=== PATIENT | male | born 1975 | race Caucasian/White ===

== ENCOUNTER 2016-07-23 09:52 | Inpatient (IN) | payer OTHER ==
[2016-07-23 10:23] VITALS: BMI 33.7
--- NOTE | 2016-07-23 15:46 | HP ---
Admission [facility] Chief Complaint: I am here because I need rehab and my police patrol officer has mandated me for rehab. Allergies/Adverse Reactions: Allergies Allergy/AdvReac Type Severity Reaction Status Date / Time penicillin G Allergy Severe Rash Verified 07/23/16 11:44 History of Present Illness: pt is a 41yr old male with a history of cocaine dependence seeking rehab for treatment. Exam Limitations: No Limitations - Ebola screening Have you traveled outside of the country in the last 21 days: No Have you had contact with anyone from an Ebola affected area: No Have you been sick,other than usual withdrawal symptoms: No Do you have a fever: No - Review of Systems Constitutional: Chills EENT: reports: No Symptoms Reported Respiratory: reports: Cough Cardiac: reports: Syncope GI: reports: Constipated : reports: No Symptoms Reported Musculoskeletal: reports: No Symptoms Reported Integumentary: reports: No Symptoms Reported Neuro: reports: No Symptoms reported Endocrine: reports: No Symptoms Reported Hematology: reports: No Symptoms Reported Psychiatric: reports: Judgement Intact, Mood/Affect Appropiate, Orientated x3, Agitated Other Systems: Reviewed and Negative Patient History - Patient Medical History Hx Anemia: No Hx Asthma: No Hx Chronic Obstructive Pulmonary Disease (COPD): No Hx Cancer: No Hx Cardiac Disorders: No Hx Hypertension: No Hx Hypercholesterolemia: No Hx Pacemaker: No HX Cerebrovascular Accident: No Hx Seizures: No Hx Dementia: No Hx Diabetes: No Hx Gastrointestinal Disorders: No Hx Liver Disease: No Hx Genitourinary Disorders: No Hx Sexually Transmitted Disorders: No Hx Renal Disease (ESRD): No Hx Thyroid Disease: No Hx Human Immunodeficiency Virus (HIV): No (negative) Hx Hepatitis C: No (negative) Hx Depression: Yes Hx Suicide Attempt: No (denies) Hx Bipolar Disorder: No Hx Schizophrenia: No - Patient Surgical History Past Surgical History: No - PPD History Previous Implant?: Yes Documented Results: Negative w/o proof PPD to be Administered?: Yes - Reproductive History Patient is a Female of Child Bearing Age (11 -55 yrs old): No - Smoking Cessation Smoking history: Current every day smoker Have you smoked in the past 12 months: Yes Aproximately how many cigarettes per day: 10 Hx Chewing Tobacco Use: No Initiated information on smoking cessation: Yes 'Breaking Loose' booklet given: 07/23/16 - Substance & Tx. History Hx Alcohol Use: No Hx Substance Use: No Substance Use Type: Cocaine Hx Substance Use Treatment: Yes - Substances Abused Crack Route: Smoking Frequency: No use in 30 days Amount used: 1x only Age of first use: 41 Date of Last Use: 07/17/16 Family Disease History - Family Disease History Family History: Denies Family Disease History: Heart Disease: Father, Mother Admission Physical Exam [facility] - Vital Signs Vital Signs: Vital Signs - 24 hr 07/23/16 10:22 Temperature 97.3 F L Pulse Rate 72 Respiratory 20 Rate Blood Pressure 128/73 - Physical General Appearance: Yes: Mild Distress, Anxious HEENTM: Yes: Normal Voice Respiratory: Yes: Lungs Clear, Normal Breath Sounds, No Respiratory Distress Neck: Yes: No masses,lesions,Nodules Breast: Yes: Within Normal Limits Cardiology: Yes: Regular Rhythm, Regular Rate, S1, S2 Abdominal: Yes: Normal Bowel Sounds, Non Tender, Soft Genitourinary: Yes: Within Normal Limits Back: Yes: Normal Inspection Musculoskeletal: Yes: full range of Motion Extremities: Yes: Normal Capillary Refill, Normal Inspection, Non-Tender, Tremors Neurological: Yes: Fully Oriented, Normal Response Integumentary: Yes: Normal Color, Diaphoresis Lymphatic: Yes: Within Normal Limits - Diagnostic (1) Cocaine abuse Current Visit: Yes Status: Chronic Cleared for Admission [facility] - Detox or Rehab [facility] Level of Care: Medically Managed Claeared for Rehab Admission: Yes [facility] Breath Alcohol Content Breath Alcohol Content: 0 Urine Drug Screen - Results Drug Screen Negative: Yes
[2016-07-23] MEDS ORDERED: LOPERAMIDE HCL 2 MG CAPSULE PO PRN (16:00)
[2016-07-23] MEDS ORDERED: NICOTINE POLACRILEX 4 MG GUM BUC PRN (16:00)
[2016-07-23] MEDS ORDERED: MAGNESIUM CITRATE 300 ML BOTTLE PO PRN (16:00)
[2016-07-23] MEDS ORDERED: P-EPHED 60MG/TRIPROLIDI 2.5MG TABLET PO PRN (16:00)
[2016-07-23] MEDS ORDERED: MAGNESIUM HYDROX 2400MG/30ML ORAL SUSPENSION 30 ML CUP PO PRN (16:00)
[2016-07-23] MEDS ORDERED: MAG HYDROX/AL HYDROX/SIMETH 30 ML UNIT-DOSE CUP PO PRN (16:00)
[2016-07-23] MEDS ORDERED: guaiFENesin/D-METHORPHAN HB 10 ML UNIT-DOSE CUPS PO PRN (16:00)
[2016-07-23] MEDS ORDERED: MENTHOL/PHENOL 1 EACH UD MM PRN (16:00)
[2016-07-23] MEDS ORDERED: TUBERCULIN PPD 5 TU/0.1ML VIAL ID ONE (19:35)
[2016-07-23] MEDS: THIAMINE HCL 100 MG TABLET (FP) PO SCH (22:41)
[2016-07-24] MEDS: busPIRone HCL 10 MG TABLET (FP) PO SCH ×3 (00:11→21:41)
[2016-07-24] MEDS: PRENATAL VITAMINS W/ FOLIC ACID TABLET (FP) PO SCH (10:31)
[2016-07-24] MEDS: BENZTROPINE MESYLATE 1 MG TABLET (FP) PO SCH (10:32)
[2016-07-24] MEDS: TOPIRAMATE 25 MG TABLET (FP) PO SCH (10:32)
[2016-07-24] MEDS: NICOTINE 21 MG/24 HOURS TOPICAL PATCH TD SCH (10:33)
[2016-07-24] MEDS: IBUPROFEN 400 MG TABLET (FP) PO PRN (10:35)
[2016-07-24 10:42] LABS: MCH 28.8 pg (25.7-33.7); MCHC 32.7 g/dl (32.0-35.9); MEAN CELL VOLUME 88.1 fl (80-96); MEAN PLT VOLUME 8.5 fl (7.5-11.1); PLATELET COUNT 262 K/MM3 (134-434); RDW 14.4 % (11.9-15.9)
[2016-07-24 11:28] LABS: ALBUMIN 3.5 g/dl (3.4-5.0); ALK PHOS 62 U/L (45-117); ANION GAP 9 (8-16); BILIRUBIN,TOTAL 0.3 mg/dL (0.2-1.0); CALCIUM 8.6 mg/dL (8.5-10.1); CO2 24 mmol/L (21-32); CREATININE 1.1 mg/dL (0.7-1.3); GLUCOSE,RANDOM 87 mg/dL (74-106); SGOT/AST 16 U/L (15-37); SGPT/ALT 24 U/L (12-78); TOT PROT 6.6 g/dl (6.4-8.2)
[2016-07-24 13:38] LABS: URINE APPEARANCE CLEAR; URINE BILIRUBIN NEGATIVE (NEGATIVE); URINE BLOOD NEGATIVE (NEGATIVE); URINE COLOR LT. YELLOW; URINE GLUCOSE (UA) NEGATIVE (NEGATIVE); URINE KETONE NEGATIVE (NEGATIVE); URINE LEUK ESTERASE NEGATIVE (NEGATIVE); URINE NITRITE NEGATIVE (NEGATIVE); URINE PROTEIN NEGATIVE (NEGATIVE); URINE UROBILINOGEN 0.2 E.U/dl E.U./dl (0.2-1.0)
[2016-07-24] MEDS: THIAMINE HCL 100 MG TABLET (FP) PO SCH (21:41)
[2016-07-25] MEDS: TOPIRAMATE 25 MG TABLET (FP) PO SCH (10:37)
[2016-07-25] MEDS: BENZTROPINE MESYLATE 1 MG TABLET (FP) PO SCH (10:37)
[2016-07-25] MEDS: PRENATAL VITAMINS W/ FOLIC ACID TABLET (FP) PO SCH (10:37)
[2016-07-25] MEDS: busPIRone HCL 10 MG TABLET (FP) PO SCH ×3 (10:37→21:42)
[2016-07-25] MEDS: NICOTINE 21 MG/24 HOURS TOPICAL PATCH TD SCH (10:37)
[2016-07-25] MEDS: THIAMINE HCL 100 MG TABLET (FP) PO SCH ×2 (21:39→21:42)
[2016-07-26] MEDS: BENZTROPINE MESYLATE 1 MG TABLET (FP) PO SCH (10:36)
[2016-07-26] MEDS: busPIRone HCL 10 MG TABLET (FP) PO SCH ×2 (10:36→21:28)
[2016-07-26] MEDS: TOPIRAMATE 25 MG TABLET (FP) PO SCH (10:36)
[2016-07-26] MEDS: NICOTINE 21 MG/24 HOURS TOPICAL PATCH TD SCH (10:36)
[2016-07-26] MEDS: PRENATAL VITAMINS W/ FOLIC ACID TABLET (FP) PO SCH (10:36)
--- NOTE | 2016-07-26 14:10 | HP ---
Psychiatrist Admission - Data Date of interview: 07/26/16 Admission source: [facility] Identifying data: THis is the first 5N inpatient rehabilitation admission for this 43 year old single male Medical History: hypertension, fracture Rt tibia and Fibula. Smokes cigarettes 6-7 -10 daily. Psychiatric History: Patient reports first psychiatric contact was in 1885, reports parents took him to see a psychiatrist at the clinic, he reports a few psychiatric hospitalizations, one time stayed in the hospital 2 months, most recent hospitalization was in 2010, he reports carries a diagnosis of Schizophrenia, under the care of the [facility] and on Haldol Decanoate injection 100 mg IM monthly, called placed to the clinic and spoke with patient's nurse Jermain Benavides [phone], who confirmed that patient had his injection on 07/22/16 and next is due on 08/19/16. PAtient currently on cogentin, buspar and topomax. Physical/Sexual Abuse/Trauma History: denies history of sexual, physical and verbal abuse. Vital Signs: Vital Signs - 24 hr 07/26/16 07/26/16 07/26/16 00:30 03:30 06:00 Temperature 97.6 F Pulse Rate 69 Respiratory 16 16 18 Rate Blood Pressure 123/82 Allergies/Adverse Reactions: Allergies Allergy/AdvReac Type Severity Reaction Status Date / Time penicillin G Allergy Severe Rash Verified 07/24/16 00:25 Date of last physical exam: 07/23/16 Concur with the findings of this exam: Yes - Substance Abuse/Tx History Hx Alcohol Use: No Hx Substance Use: Yes Substance Use Type: Cocaine ($60 reports used ot once) Hx Substance Use Treatment: Yes ([facility]) - Admission Criteria Previous failed treatment: Yes Poor recovery environment: Yes Comorbidities: Yes Lacks judgement: Yes Mental Status Exam - Mental Status Exam Alert and Oriented to: Time, Place, Person Cognitive Function: Grossly Intact Patient Appearance: Well Groomed Mood: Sad Affect: Mood Congruent, Flat, Constricted Patient Behavior: Cooperative Speech Pattern: Appropriate Voice Loudness: Normal Thought Process: Goal Oriented Thought Disorder: Not Present Hallucinations: Denies Suicidal Ideation: Denies Homicidal Ideation: Denies Insight/Judgement: Fair Sleep: Fair Appetite: Good Muscle strength/Tone: Normal Gait/Station: Normal Psychiatric Findings - Problem List ([place] 1, 2,3) (1) Cocaine abuse Current Visit: Yes Status: Chronic (2) Schizophrenia Current Visit: Yes Status: Acute - Initial Treatment Plan Initial Treatment Plan: Continue his medications,monitor progress as needed.
[2016-07-26] MEDS: THIAMINE HCL 100 MG TABLET (FP) PO SCH (21:28)
[2016-07-27] MEDS: BENZTROPINE MESYLATE 1 MG TABLET (FP) PO SCH (10:07)
[2016-07-27] MEDS: PRENATAL VITAMINS W/ FOLIC ACID TABLET (FP) PO SCH (10:07)
[2016-07-27] MEDS: busPIRone HCL 10 MG TABLET (FP) PO SCH ×2 (10:07→21:12)
[2016-07-27] MEDS: NICOTINE 21 MG/24 HOURS TOPICAL PATCH TD SCH (10:08)
[2016-07-27] MEDS: TOPIRAMATE 25 MG TABLET (FP) PO SCH (10:08)
[2016-07-27] MEDS: THIAMINE HCL 100 MG TABLET (FP) PO SCH (21:12)
[2016-07-28] MEDS: PRENATAL VITAMINS W/ FOLIC ACID TABLET (FP) PO SCH (10:28)
[2016-07-28] MEDS: busPIRone HCL 10 MG TABLET (FP) PO SCH ×2 (10:28→21:16)
[2016-07-28] MEDS: BENZTROPINE MESYLATE 1 MG TABLET (FP) PO SCH (10:28)
[2016-07-28] MEDS: TOPIRAMATE 25 MG TABLET (FP) PO SCH (10:28)
[2016-07-28] MEDS: NICOTINE 21 MG/24 HOURS TOPICAL PATCH TD SCH (10:29)
[2016-07-28] MEDS: THIAMINE HCL 100 MG TABLET (FP) PO SCH (21:16)
[2016-07-28] MEDS: SODIUM CHLORIDE NASAL SPRAY 44 ML BOTTLE NS PRN (21:30)
[2016-07-29] MEDS: busPIRone HCL 10 MG TABLET (FP) PO SCH ×2 (10:33→21:42)
[2016-07-29] MEDS: BENZTROPINE MESYLATE 1 MG TABLET (FP) PO SCH (10:33)
[2016-07-29] MEDS: PRENATAL VITAMINS W/ FOLIC ACID TABLET (FP) PO SCH (10:33)
[2016-07-29] MEDS: NICOTINE 21 MG/24 HOURS TOPICAL PATCH TD SCH (10:35)
[2016-07-29] MEDS: TOPIRAMATE 25 MG TABLET (FP) PO SCH (10:35)
--- NOTE | 2016-07-29 15:51 | PN ---
Psychiatric Progress Note Vital Signs: Vital Signs Period Temp Pulse Resp BP Sys/Calixto Pulse Ox Last 24 Hr 97.4 F 70 18-18 114/56 Date of Session: 07/29/16 Chief Complaint:: progress update HPI: Patient is addressing cocaine abuse comorbid Schizophrenia. ROS: WNL Current Medications: Active Medications Generic Name Dose Route Start Last Admin Trade Name Freq PRN Reason Stop Dose Admin Acetaminophen 650 mg 07/23/16 16:00 Tylenol - PO Q4H PRN PAIN Al Hydroxide/Mg Hydroxide 30 ml 07/23/16 16:00 Mylanta Oral Suspension - PO Q6H PRN DYSPEPSIA Benztropine Mesylate 1 mg 07/24/16 10:00 07/29/16 10:33 Cogentin - PO 1 mg DAILY HERI Administration Buspirone HCl 10 mg 07/23/16 23:45 07/29/16 10:33 Buspar - PO 10 mg BID HERI Administration Diphenhydramine HCl 50 mg 07/23/16 22:00 Benadryl - PO HSMR1 PRN INSOMNIA Eucalyptus/Menthol/Phenol/Sorbitol 1 each 07/23/16 16:00 Cepastat Lozenge - MM Q4H PRN SORE THROAT Guaifenesin 10 ml 07/23/16 16:00 Robitussin Dm - PO Q6H PRN COUGH Hydroxyzine Pamoate 50 mg 07/23/16 16:00 Vistaril - PO Q4H PRN AGITATION Ibuprofen 400 mg 07/23/16 16:00 07/24/16 10:35 Motrin - PO 400 mg Q6H PRN Administration SEVERE PAIN Loperamide HCl 4 mg 07/23/16 16:00 Imodium - PO Q6H PRN DIARRHEA Magnesium Citrate 300 ml 07/23/16 16:00 Citroma - PO Q48H PRN CONSTIPATION Magnesium Hydroxide 30 ml 07/23/16 16:00 Milk Of Magnesia - PO DAILY PRN CONSTIPATION Nicotine 21 mg 07/24/16 10:00 07/29/16 10:35 Nicoderm Patch - TD Not Given DAILY HERI Nicotine Polacrilex 4 mg 07/23/16 16:00 Nicorette Gum - BUC Q2H PRN NICOTINE REPLACEMENT RX Multivit/Folic Acid/Iron 1 tab 07/24/16 10:00 12/22/16 10:33 Vitamins (Sjr) - PO 1 tab DAILY HERI Administration Pseudoephedrine/Triprolidine 1 combo 07/23/16 16:00 Actifed - PO TID PRN NASAL CONGESTION Sodium Chloride 2 spray 07/28/16 12:43 07/28/16 21:30 [place] Nasal [place] - NS 2 spray TID PRN Administration NASAL CONGESTION Thiamine HCl 100 mg 07/23/16 22:00 07/28/16 21:16 Vitamin B1 - PO 100 mg HS HERI Administration Topiramate 50 mg 07/24/16 10:00 07/29/16 10:35 Topamax - PO Not Given DAILY HERI Current Side Effect: No Lab tests ordered: No Lab tests reviewed: Yes Provider note:: Patient reports that he is feeling fine, he reported that his parachute officer referred him for the treatent, states he used only once cocaine and spend $60. Reviewed all his current medications, patient reports he feels comfortable with all his current medications and does not want any changes.He reports no side-effects from his medications. MSE completed, continue to monitor porgress. His next Haldol Decanote injection on 08/19/16. Total face to face time:: 35 Mental Status Exam - Mental Status Exam Alert and Oriented to: Time, Place, Person Cognitive Function: Good Patient Appearance: Well Groomed Mood: Hopeful Affect: Mood Congruent Patient Behavior: Appropriate, Cooperative Speech Pattern: Appropriate Voice Loudness: Normal Thought Process: Intact, Goal Oriented Thought Disorder: Not Present Hallucinations: Denies Suicidal Ideation: Denies Homicidal Ideation: Denies Insight/Judgement: Fair Sleep: Fair Appetite: Good Muscle strength/Tone: Normal Gait/Station: Normal Psychiatric Treatment Plan - Problem List (1) Cocaine abuse Current Visit: Yes (2) Schizophrenia Current Visit: Yes
[2016-07-29] MEDS: THIAMINE HCL 100 MG TABLET (FP) PO SCH (21:42)
[2016-07-29] MEDS: diphenhydrAMINE HCL 50 MG CAPSULE PO PRN (21:43)
[2016-07-30] MEDS: busPIRone HCL 10 MG TABLET (FP) PO SCH ×2 (10:25→21:19)
[2016-07-30] MEDS: NICOTINE 21 MG/24 HOURS TOPICAL PATCH TD SCH (10:25)
[2016-07-30] MEDS: BENZTROPINE MESYLATE 1 MG TABLET (FP) PO SCH (10:25)
[2016-07-30] MEDS: PRENATAL VITAMINS W/ FOLIC ACID TABLET (FP) PO SCH (10:25)
[2016-07-30] MEDS: TOPIRAMATE 25 MG TABLET (FP) PO SCH (10:25)
[2016-07-30] MEDS: THIAMINE HCL 100 MG TABLET (FP) PO SCH (21:19)
[2016-07-31] MEDS: PRENATAL VITAMINS W/ FOLIC ACID TABLET (FP) PO SCH (10:24)
[2016-07-31] MEDS: BENZTROPINE MESYLATE 1 MG TABLET (FP) PO SCH (10:24)
[2016-07-31] MEDS: busPIRone HCL 10 MG TABLET (FP) PO SCH ×2 (10:25→21:24)
[2016-07-31] MEDS: TOPIRAMATE 25 MG TABLET (FP) PO SCH (10:26)
[2016-07-31] MEDS: NICOTINE 21 MG/24 HOURS TOPICAL PATCH TD SCH (10:26)
[2016-07-31] MEDS: THIAMINE HCL 100 MG TABLET (FP) PO SCH (21:24)
[2016-07-31] MEDS: diphenhydrAMINE HCL 50 MG CAPSULE PO PRN (21:24)
[2016-08-01] MEDS: NICOTINE 21 MG/24 HOURS TOPICAL PATCH TD SCH (10:24)
[2016-08-01] MEDS: busPIRone HCL 10 MG TABLET (FP) PO SCH ×2 (10:24→21:34)
[2016-08-01] MEDS: PRENATAL VITAMINS W/ FOLIC ACID TABLET (FP) PO SCH (10:24)
[2016-08-01] MEDS: BENZTROPINE MESYLATE 1 MG TABLET (FP) PO SCH (10:24)
[2016-08-01] MEDS: TOPIRAMATE 25 MG TABLET (FP) PO SCH (10:24)
[2016-08-01] MEDS: THIAMINE HCL 100 MG TABLET (FP) PO SCH (21:34)
[2016-08-01] MEDS: IBUPROFEN 400 MG TABLET (FP) PO PRN (21:35)
[2016-08-02] MEDS: busPIRone HCL 10 MG TABLET (FP) PO SCH ×2 (10:47→21:29)
[2016-08-02] MEDS: BENZTROPINE MESYLATE 1 MG TABLET (FP) PO SCH (10:47)
[2016-08-02] MEDS: PRENATAL VITAMINS W/ FOLIC ACID TABLET (FP) PO SCH (10:47)
[2016-08-02] MEDS: NICOTINE 21 MG/24 HOURS TOPICAL PATCH TD SCH (10:48)
[2016-08-02] MEDS: TOPIRAMATE 25 MG TABLET (FP) PO SCH (10:48)
[2016-08-02] MEDS: ACETAMINOPHEN 325 MG TABLET (FP) PO PRN ×2 (15:38→21:30)
[2016-08-02] MEDS: THIAMINE HCL 100 MG TABLET (FP) PO SCH (21:29)
[2016-08-03] MEDS: SODIUM CHLORIDE NASAL SPRAY 44 ML BOTTLE NS PRN (09:53)
[2016-08-03] MEDS: busPIRone HCL 10 MG TABLET (FP) PO SCH ×2 (09:53→21:39)
[2016-08-03] MEDS: PRENATAL VITAMINS W/ FOLIC ACID TABLET (FP) PO SCH (09:53)
[2016-08-03] MEDS: BENZTROPINE MESYLATE 1 MG TABLET (FP) PO SCH (09:53)
[2016-08-03] MEDS: NICOTINE 21 MG/24 HOURS TOPICAL PATCH TD SCH (09:54)
[2016-08-03] MEDS: TOPIRAMATE 25 MG TABLET (FP) PO SCH (09:55)
[2016-08-03] MEDS: THIAMINE HCL 100 MG TABLET (FP) PO SCH (21:39)
[2016-08-03] MEDS: diphenhydrAMINE HCL 50 MG CAPSULE PO PRN (21:41)
[2016-08-03] MEDS: ACETAMINOPHEN 325 MG TABLET (FP) PO PRN (21:41)
--- NOTE | 2016-08-03 22:00 | PN ---
S Progress Note Note: ASKED TO SEE PT HE PULLED OUT HIS TEETH. PT REPORTS TAKING OUT HIS 3 FRONTAL DENTAL IMPLANTS BECAUSE THEY BOTHERED HIM WHILE CHEWING. DENIES PAIN. 0- NO S/SX OF INFECTION OR BLEEDING OR TRAUMA OTHER THAN CAVITIES NOTED IN THE GUMS WITH SOME REDDNESS FROM WHERE THE IMPLANTS WHERE REMOVED IS NOTED A- REMOVAL OF DENTAL IMPLANT P-PT INSTRUCTED TO RINSE WITH WARM SALT WATER AFTER EACH MEAL AND BED TIME START DOXYCYCLINE 100 MG PO DAILY X 7 DAYS FOR PROPHYLACTIC TXMENT MONITOR FOR S/SX OF INFECTION OR BLEEDING.MOTRIN/TYLENOL ORDERED FOR PAIN
[2016-08-03] MEDS: DOXYCYCLINE HYCLATE 100 MG CAPSULE PO SCH (23:00)
--- NOTE | 2016-08-04 09:48 | PN ---
S Progress Note Note: patient reports he wants to stop topomax, patient reports he is losing weight, will d/c, continue to monitor.
[2016-08-04] MEDS: NICOTINE 21 MG/24 HOURS TOPICAL PATCH TD SCH (10:22)
[2016-08-04] MEDS: DOXYCYCLINE HYCLATE 100 MG CAPSULE PO SCH (10:22)
[2016-08-04] MEDS: BENZTROPINE MESYLATE 1 MG TABLET (FP) PO SCH (10:22)
[2016-08-04] MEDS: busPIRone HCL 10 MG TABLET (FP) PO SCH ×2 (10:22→21:27)
[2016-08-04] MEDS: PRENATAL VITAMINS W/ FOLIC ACID TABLET (FP) PO SCH (10:22)
[2016-08-04] MEDS: THIAMINE HCL 100 MG TABLET (FP) PO SCH (21:27)
[2016-08-05] MEDS: PRENATAL VITAMINS W/ FOLIC ACID TABLET (FP) PO SCH (10:01)
[2016-08-05] MEDS: NICOTINE 21 MG/24 HOURS TOPICAL PATCH TD SCH (10:01)
[2016-08-05] MEDS: busPIRone HCL 10 MG TABLET (FP) PO SCH ×2 (10:01→21:49)
[2016-08-05] MEDS: DOXYCYCLINE HYCLATE 100 MG CAPSULE PO SCH (10:01)
[2016-08-05] MEDS: BENZTROPINE MESYLATE 1 MG TABLET (FP) PO SCH (10:01)
[2016-08-05] MEDS: THIAMINE HCL 100 MG TABLET (FP) PO SCH (21:49)
[2016-08-06] MEDS: busPIRone HCL 10 MG TABLET (FP) PO SCH ×2 (10:16→21:28)
[2016-08-06] MEDS: PRENATAL VITAMINS W/ FOLIC ACID TABLET (FP) PO SCH (10:16)
[2016-08-06] MEDS: DOXYCYCLINE HYCLATE 100 MG TABLET PO SCH (10:16)
[2016-08-06] MEDS: NICOTINE 21 MG/24 HOURS TOPICAL PATCH TD SCH (10:16)
[2016-08-06] MEDS: BENZTROPINE MESYLATE 1 MG TABLET (FP) PO SCH (10:16)
[2016-08-06] MEDS: THIAMINE HCL 100 MG TABLET (FP) PO SCH (21:28)
[2016-08-07] MEDS: BENZTROPINE MESYLATE 1 MG TABLET (FP) PO SCH (10:20)
[2016-08-07] MEDS: DOXYCYCLINE HYCLATE 100 MG TABLET PO SCH (10:20)
[2016-08-07] MEDS: busPIRone HCL 10 MG TABLET (FP) PO SCH ×2 (10:20→21:09)
[2016-08-07] MEDS: NICOTINE 21 MG/24 HOURS TOPICAL PATCH TD SCH (10:20)
[2016-08-07] MEDS: PRENATAL VITAMINS W/ FOLIC ACID TABLET (FP) PO SCH (10:20)
[2016-08-07] MEDS: THIAMINE HCL 100 MG TABLET (FP) PO SCH (21:09)
[2016-08-08] MEDS: BENZTROPINE MESYLATE 1 MG TABLET (FP) PO SCH (09:56)
[2016-08-08] MEDS: DOXYCYCLINE HYCLATE 100 MG TABLET PO SCH (09:56)
[2016-08-08] MEDS: busPIRone HCL 10 MG TABLET (FP) PO SCH ×2 (09:56→21:25)
[2016-08-08] MEDS: PRENATAL VITAMINS W/ FOLIC ACID TABLET (FP) PO SCH (09:57)
[2016-08-08] MEDS: NICOTINE 21 MG/24 HOURS TOPICAL PATCH TD SCH (09:57)
[2016-08-08] MEDS: hydrOXYzine PAMOATE 50 MG CAPSULE (FP) PO PRN (11:31)
[2016-08-08] MEDS: THIAMINE HCL 100 MG TABLET (FP) PO SCH (21:25)
[2016-08-09] MEDS: busPIRone HCL 10 MG TABLET (FP) PO SCH ×2 (09:32→21:53)
[2016-08-09] MEDS: BENZTROPINE MESYLATE 1 MG TABLET (FP) PO SCH (09:32)
[2016-08-09] MEDS: PRENATAL VITAMINS W/ FOLIC ACID TABLET (FP) PO SCH (09:32)
[2016-08-09] MEDS: DOXYCYCLINE HYCLATE 100 MG TABLET PO SCH (09:32)
[2016-08-09] MEDS: NICOTINE 21 MG/24 HOURS TOPICAL PATCH TD SCH (09:33)
[2016-08-09] MEDS: THIAMINE HCL 100 MG TABLET (FP) PO SCH (21:53)
[2016-08-09] MEDS: hydrOXYzine PAMOATE 50 MG CAPSULE (FP) PO PRN (21:53)
[2016-08-10] MEDS: BENZTROPINE MESYLATE 1 MG TABLET (FP) PO SCH (09:31)
[2016-08-10] MEDS: DOXYCYCLINE HYCLATE 100 MG TABLET PO SCH (09:31)
[2016-08-10] MEDS: PRENATAL VITAMINS W/ FOLIC ACID TABLET (FP) PO SCH (09:31)
[2016-08-10] MEDS: busPIRone HCL 10 MG TABLET (FP) PO SCH ×2 (09:31→21:12)
[2016-08-10] MEDS: NICOTINE 21 MG/24 HOURS TOPICAL PATCH TD SCH (09:31)
--- NOTE | 2016-08-10 11:10 | PN ---
Psychiatric Progress Note Vital Signs: Vital Signs Period Temp Pulse Resp BP Sys/Calixto Pulse Ox Last 24 Hr 97.8 F 69 16-18 111/72 Date of Session: 08/10/16 Chief Complaint:: psychiatric evaluations HPI: Patient is addressing cocaine abuse comorbid Schizophrenia. ROS: WNL Current Medications: Active Medications Generic Name Dose Route Start Last Admin Trade Name Freq PRN Reason Stop Dose Admin Acetaminophen 650 mg 07/23/16 16:00 08/03/16 21:41 Tylenol - PO 650 mg Q4H PRN Administration PAIN Al Hydroxide/Mg Hydroxide 30 ml 07/23/16 16:00 08/01/16 13:06 Mylanta Oral Suspension - PO 30 ml Q6H PRN Administration DYSPEPSIA Benztropine Mesylate 1 mg 07/24/16 10:00 08/10/16 09:31 Cogentin - PO 1 mg DAILY HERI Administration Buspirone HCl 10 mg 07/23/16 23:45 08/10/16 09:31 Buspar - PO 10 mg BID HERI Administration Diphenhydramine HCl 50 mg 07/23/16 22:00 08/03/16 21:41 Benadryl - PO 50 mg HSMR1 PRN Administration INSOMNIA Doxycycline Hyclate 100 mg 08/06/16 10:00 08/10/16 09:31 Vibratab - PO 08/10/16 21:59 100 mg DAILY HERI Administration Eucalyptus/Menthol/Phenol/Sorbitol 1 each 07/23/16 16:00 Cepastat Lozenge - MM Q4H PRN SORE THROAT Guaifenesin 10 ml 07/23/16 16:00 08/08/16 10:19 Robitussin Dm - PO 10 ml Q6H PRN Administration COUGH Hydroxyzine Pamoate 50 mg 07/23/16 16:00 08/09/16 21:53 Vistaril - PO 50 mg Q4H PRN Administration AGITATION Ibuprofen 400 mg 07/23/16 16:00 08/01/16 21:35 Motrin - PO 400 mg Q6H PRN Administration SEVERE PAIN Loperamide HCl 4 mg 07/23/16 16:00 Imodium - PO Q6H PRN DIARRHEA Magnesium Citrate 300 ml 07/23/16 16:00 Citroma - PO Q48H PRN CONSTIPATION Magnesium Hydroxide 30 ml 07/23/16 16:00 Milk Of Magnesia - PO DAILY PRN CONSTIPATION Nicotine 21 mg 07/24/16 10:00 08/10/16 09:31 Nicoderm Patch - TD Not Given DAILY HERI Nicotine Polacrilex 4 mg 07/23/16 16:00 Nicorette Gum - BUC Q2H PRN NICOTINE REPLACEMENT RX Multivit/Folic Acid/Iron 1 tab 07/24/16 10:00 08/10/16 09:31 Vitamins (Sjr) - PO Not Given DAILY HERI Pseudoephedrine/Triprolidine 1 combo 07/23/16 16:00 Actifed - PO TID PRN NASAL CONGESTION Sodium Chloride 2 spray 07/28/16 12:43 08/03/16 09:53 [place] Nasal [place] - NS 2 spray TID PRN Administration NASAL CONGESTION Thiamine HCl 100 mg 07/23/16 22:00 08/09/16 21:53 Vitamin B1 - PO 100 mg HS HERI Administration Medication(s) Change(s): add Trazodone Current Side Effect: No Lab tests ordered: No Lab tests reviewed: Yes Provider note:: Was asked by the staff to re-evaluate the patient according to the staff patient looks sad. Patient was seen and evaluated, he reports he just can't sleep well at nights and next day fatiqued and wants to be alone, he denies feeling depressed and denies suicial and homicidal thoughts, reviewed medications with the patient , he reportes had a good response to Trazodone in the past, will start 50 mg po hs, continue to monitor progress. Total face to face time:: 25 Mental Status Exam - Mental Status Exam Alert and Oriented to: Time, Place, Person Cognitive Function: Grossly Intact Patient Appearance: Well Groomed Mood: Depressed, Sad Affect: Mood Congruent Patient Behavior: Appropriate, Cooperative Speech Pattern: Appropriate Voice Loudness: Normal Thought Process: Intact, Goal Oriented Thought Disorder: Not Present Hallucinations: Denies Suicidal Ideation: Denies Homicidal Ideation: Denies Insight/Judgement: Fair Sleep: Poorly, Difficulty falling asleep Appetite: Fair Muscle strength/Tone: Normal Gait/Station: Normal Psychiatric Treatment Plan - Problem List (1) Cocaine abuse Current Visit: Yes (2) Schizophrenia Current Visit: Yes
[2016-08-10] MEDS: traZODone HCL 50 MG TABLET (FP) PO SCH (21:11)
[2016-08-10] MEDS: hydrOXYzine PAMOATE 50 MG CAPSULE (FP) PO PRN (21:11)
[2016-08-10] MEDS: THIAMINE HCL 100 MG TABLET (FP) PO SCH (21:11)
[2016-08-11] MEDS: busPIRone HCL 10 MG TABLET (FP) PO SCH ×2 (10:06→21:21)
[2016-08-11] MEDS: BENZTROPINE MESYLATE 1 MG TABLET (FP) PO SCH (10:06)
[2016-08-11] MEDS: NICOTINE 21 MG/24 HOURS TOPICAL PATCH TD SCH (10:07)
[2016-08-11] MEDS: PRENATAL VITAMINS W/ FOLIC ACID TABLET (FP) PO SCH (10:07)
[2016-08-11] MEDS: THIAMINE HCL 100 MG TABLET (FP) PO SCH (21:21)
[2016-08-11] MEDS: traZODone HCL 50 MG TABLET (FP) PO SCH (21:21)
[2016-08-11] MEDS: hydrOXYzine PAMOATE 50 MG CAPSULE (FP) PO PRN (21:22)
[2016-08-12 06:56] VITALS: BP 132/64; PULSE 70; TEMP 97.4
[2016-08-12] MEDS: busPIRone HCL 10 MG TABLET (FP) PO SCH (10:08)
[2016-08-12] MEDS: BENZTROPINE MESYLATE 1 MG TABLET (FP) PO SCH (10:08)
[2016-08-12] MEDS: PRENATAL VITAMINS W/ FOLIC ACID TABLET (FP) PO SCH (10:09)
[2016-08-12] MEDS: NICOTINE 21 MG/24 HOURS TOPICAL PATCH TD SCH (10:09)
--- NOTE | 2016-08-12 10:20 | PN ---
Psychiatric Progress Note Vital Signs: Vital Signs Period Temp Pulse Resp BP Sys/Calixto Pulse Ox Last 24 Hr 97.4 F 70 18-18 132/64 Date of Session: 08/12/16 Chief Complaint:: discharge visit HPI: Patient has addressed cocaine abuse comorbid Schizophrenia. ROS: WNL Current Medications: Active Medications Generic Name Dose Route Start Last Admin Trade Name Freq PRN Reason Stop Dose Admin Acetaminophen 650 mg 07/23/16 16:00 08/03/16 21:41 Tylenol - PO 650 mg Q4H PRN Administration PAIN Al Hydroxide/Mg Hydroxide 30 ml 07/23/16 16:00 08/01/16 13:06 Mylanta Oral Suspension - PO 30 ml Q6H PRN Administration DYSPEPSIA Benztropine Mesylate 1 mg 07/24/16 10:00 08/12/16 10:08 Cogentin - PO 1 mg DAILY HERI Administration Buspirone HCl 10 mg 07/23/16 23:45 08/12/16 10:08 Buspar - PO 10 mg BID HERI Administration Diphenhydramine HCl 50 mg 07/23/16 22:00 08/03/16 21:41 Benadryl - PO 50 mg HSMR1 PRN Administration INSOMNIA Eucalyptus/Menthol/Phenol/Sorbitol 1 each 07/23/16 16:00 Cepastat Lozenge - MM Q4H PRN SORE THROAT Guaifenesin 10 ml 07/23/16 16:00 08/08/16 10:19 Robitussin Dm - PO 10 ml Q6H PRN Administration COUGH Hydroxyzine Pamoate 50 mg 07/23/16 16:00 08/11/16 21:22 Vistaril - PO 50 mg Q4H PRN Administration AGITATION Ibuprofen 400 mg 07/23/16 16:00 08/01/16 21:35 Motrin - PO 400 mg Q6H PRN Administration SEVERE PAIN Loperamide HCl 4 mg 07/23/16 16:00 Imodium - PO Q6H PRN DIARRHEA Magnesium Citrate 300 ml 07/23/16 16:00 Citroma - PO Q48H PRN CONSTIPATION Magnesium Hydroxide 30 ml 07/23/16 16:00 Milk Of Magnesia - PO DAILY PRN CONSTIPATION Nicotine 21 mg 07/24/16 10:00 08/12/16 10:09 Nicoderm Patch - TD Not Given DAILY HERI Nicotine Polacrilex 4 mg 07/23/16 16:00 Nicorette Gum - BUC Q2H PRN NICOTINE REPLACEMENT RX Multivit/Folic Acid/Iron 1 tab 07/24/16 10:00 08/12/16 10:09 Vitamins (Sjr) - PO Not Given DAILY HERI Pseudoephedrine/Triprolidine 1 combo 07/23/16 16:00 Actifed - PO TID PRN NASAL CONGESTION Sodium Chloride 2 spray 07/28/16 12:43 08/03/16 09:53 [place] Nasal [place] - NS 2 spray TID PRN Administration NASAL CONGESTION Thiamine HCl 100 mg 07/23/16 22:00 08/11/16 21:21 Vitamin B1 - PO 100 mg HS HERI Administration Trazodone HCl 50 mg 08/10/16 22:00 08/11/16 21:21 Desyrel - PO 50 mg HS HERI Administration Current Side Effect: No Lab tests ordered: No Lab tests reviewed: Yes Provider note:: Patient has completed today his treatment and met his goals, he will continue to address his issues at [facility] outpatient treatment program where he will follow up with psychiatric nurse practitioner Reilly. Patient's next Haldol decanote injection on 08/19/16, patient made aware of this.Therapy was provided focusing on relapse prevention,coping skills,support system utilization to maintain recovery. He was encouraged to continue maintain abstinence, scripts provided , he is stable for discharge today. Total face to face time:: 35 Mental Status Exam - Mental Status Exam Alert and Oriented to: Time, Place, Person Cognitive Function: Grossly Intact Patient Appearance: Well Groomed Mood: Hopeful Affect: Appropriate, Mood Congruent Patient Behavior: Appropriate, Cooperative Speech Pattern: Clear, Appropriate Voice Loudness: Normal Thought Process: Intact Thought Disorder: Not Present Hallucinations: Denies Suicidal Ideation: Denies Homicidal Ideation: Denies Insight/Judgement: Fair Sleep: Fair Appetite: Fair Muscle strength/Tone: Normal Gait/Station: Normal Psychiatric Treatment Plan - Problem List (1) Cocaine abuse Current Visit: Yes (2) Schizophrenia Current Visit: Yes
== END 2016-08-12 11:30 | disposition home or self-care (01) | DRG 774 ==
LOC: YASAS 09:52 → Y5N 17:23
PROVIDERS: ADMIT Psychiatry & Neurology Psychiatry; ATTEND Psychiatry & Neurology Psychiatry
PROC: HZ42ZZZ Group Counseling for Substance Abuse Treatment, Cognitive-Behavioral (ICD-10-PCS; principal; 2016-07-23)
DX: F14.10 Cocaine abuse, uncomplicated (principal); F17.210 Nicotine dependence, cigarettes, uncomplicated; F20.9 Schizophrenia, unspecified; K02.9 Dental caries, unspecified
CPT/HCPCS: 36415; 80053; 81003; 85027; 86593; 93005; 93010